=== PATIENT | male | born 1970 | race Two or more races ===

== ENCOUNTER 2017-11-25 15:41 | Outpatient (CLI) | payer OTHER ==
--- NOTE | 2017-11-25 16:49 | Diagnostic Imaging Report ---
Indication: Cough Technique: XRAY Chest 2v Comparison: None Findings: Heart size and mediastinal contours are within normal limits. There is mild eventration of the right hemidiaphragm. There is no focal airspace consolidation, pleural effusion or pneumothorax. No acute osseous abnormality seen. Impression: Clear lungs.
== END 2017-11-25 17:41 | disposition home or self-care (01) ==
LOC: RAD 15:41
DX: B20 Human immunodeficiency virus [HIV] disease (principal); R61 Generalized hyperhidrosis; R76.12 Nonspecific reaction to cell mediated immunity measurement of gamma interferon antigen response without active tuberculosis; R05 Cough
CPT/HCPCS: 71046